=== PATIENT | female | born 1990 | race Caucasian/White ===

== ENCOUNTER 2024-03-11 23:29 | Inpatient (IN) | payer BC, SELFPAY ==
[2024-03-11] VITALS (7 sets, daily range): BP systolic 117–130; BP diastolic 72–81; BMI 40.3
[2024-03-11] MEDS: TYLENOL 1000 MG PO (20:18)
--- NOTE | 2024-03-11 20:19 | ED.GENMED ---
History of Present Illness
<Jennifer Ambrosio WAD LUBRICATOR - Last Filed: 03/12/24 10:23>
General
Chief Complaint: Urinary Symptoms
Source: patient
Exam Limitations: none
Time Seen by Provider: 03/11/24 20:08
Nursing documentation reviewed up to this point in time: agreed with
History of Present Illness
History of Present Illness:
33-year-old female hx ADHD, UTI, presents for 3 days of bilateral lower back pain, malodorous urine, aching pain 'in my bladder,' frequency to urinate. Denies dysuria. 3 days ago went to [facility] who sent U/A out for testing, no results yet.
Started on Nitrofurantoin 100 mg BID of which she's had 5 doses.
Yesterday Fever 102.3 with chills, fever waxing and waning since with Tylenol.
Went back to [facility] today for fever, nausea and sent here.
On arrival pt vomited.
She denies nausea on initial encounter, denies pain when laying still on stretcher.
Past History
<Jennifer Ambrosio WAD LUBRICATOR - Last Filed: 03/12/24 10:23>
Past History
ED Past Medical History: Other (Sleep apnea with CPAP use) and Other (ADHD on Adderall)
Social History
Tobacco: Non-smoker
Alcohol: None
Personal:
Living: with family
Employment: Employed
Review of Systems
<Jennifer Ambrosio, WAD LUBRICATOR - Last Filed: 03/12/24 10:23>
Review of Systems
Allergies reviewed?: Yes
All Other Systems: ROS reviewed and negative except as documented in HPI and ROS
Constitutional: Reports fever and chills
Respiratory: Denies trouble breathing
Cardiac: Denies chest pain
ABD/GI: Reports abdominal pain and vomiting; Denies diarrhea
: Reports frequency and flank pain (Bilateral); Denies dysuria, difficulty voiding or bleeding
Musculoskeletal: Reports no symptoms
Skin: Reports no symptoms
Neurological: Reports no symptoms
Phy Exam
<Jennifer Ambrosio WAD LUBRICATOR - Last Filed: 03/12/24 10:23>
Physical Exam
Physical Exam:
GENERAL: No acute distress. A&Ox3.
CONSTITUTIONAL: Temp 100.2
EYES: Clear, conjunctivae normal
ENMT: moist mucus membranes, Pharynx nl
RESPIRATORY: Regular respirations, nonlabored, lungs clear.
CARDIOVASCULAR: Regular rate and rhythm, no murmurs, no rubs.
GI: Soft, nontender, normal BS. Flanks non tender to percussion
MUSCULOSKELETAL: Moves with ease. Well perfused.
SKIN: Warm, moist, pink
PSYCH: Normal mood and affect. Well kept, interactive and appropriate
NEUROLOGIC: Awake, alert and oriented. No focal neurological deficits
Course
<Jennifer Ambrosio, WAD LUBRICATOR - Last Filed: 03/12/24 10:23>
Orders/Labs/Results
Orders:
Orders
03/11/24 20:10
Test Result ONCE
03/11/24 20:11
CMP [Comprehensive Metabolic Panel] Urgent
Complete Blood Count/With Diff Urgent
HCG, Serum Qualitative Screen Urgent
Comment: ADD ON
Urinalysis Reflex To Culture Urgent
Date Specimen was Collected: 03/11/24
Time Specimen was Collected: 20:09
Urine Microscopic Reflex Cult Urgent
Urine Culture Urgent
SOC[facility]RO Source: U
Specimen Description:
Date Specimen was Collected: 03/11/24
Time Specimen was Collected: 20:09
03/11/24 20:15
Acetaminophen [Tylenol] 1,000 mg PO NOW STA
03/11/24 21:08
CT Abd/pel Without Iv Or Oral Urgent
Comment:
Reason For Exam: hematuria, fever, n/v/ back pain
03/11/24 22:53
CefTRIAXone [Rocephin] 1,000 mg IV NOW STA
03/11/24 23:00
Flush (0.9% Sodium Chloride) [Flush (Nss)] See Dose Instructions IV PER PROTOCOL
03/11/24 23:35
Blood Culture Routine
SOC[facility]RO Source: Blood/Venous
Specimen Description:
Abnormal Lab Results
03/11/24
20:11
WBC 17.2 H 10^3/uL
(4.8-10.8)
Abs Immat Gran (auto) 0.1 H 10^3/uL
(0-0.05)
Absolute Neuts (auto) 14.6 H 10^3/uL
(1.4-6.5)
Absolute Monos (auto) 1.1 H 10^3/uL
(0.1-0.6)
Neutrophils % 85.2 H %
(42.2-75.2)
Lymphocytes % 7.5 L %
(20.5-51.1)
Glucose 164 H mg/dl
(70-99)
AST 49 H U/L
(14-36)
ALT 41 H U/L
(0-35)
Ur Occult Blood Reflex 3+ A
(Negative)
Leukocyte Esterase Rfl 1+ A
(Negative)
Urine RBC 26-30 A /HPF
(0-2)
Urine Bacteria (Reflex) Few A
(Negative)
03/11/24 20:11
03/11/24 20:11
Vital Signs
Initial and Last Documented VS:
Initial Vital Signs
Temp Pulse Resp BP Pulse Ox
100.2 F 119 20 129/81 100
03/11/24 18:56 03/11/24 18:56 03/11/24 18:56 03/11/24 18:56 03/11/24 18:56
Last Documented Vital Signs
Temp Pulse Resp BP Pulse Ox
99.6 F 84 12 104/66 96
03/12/24 07:00 03/12/24 07:00 03/12/24 07:00 03/12/24 07:00 03/12/24 07:00
<Yoselyn AndriaBlaire Purdy WAD LUBRICATOR - Last Filed: 03/11/24 23:01>
Orders/Labs/Results
Orders:
Orders
03/11/24 20:10
Test Result ONCE
03/11/24 20:11
CMP [Comprehensive Metabolic Panel] Urgent
Complete Blood Count/With Diff Urgent
HCG, Serum Qualitative Screen Urgent
Comment: ADD ON
Urinalysis Reflex To Culture Urgent
Date Specimen was Collected: 03/11/24
Time Specimen was Collected: 20:09
Urine Microscopic Reflex Cult Urgent
Urine Culture Urgent
SOCORRO Source: U
Specimen Description:
Date Specimen was Collected: 03/11/24
Time Specimen was Collected: 20:09
03/11/24 20:15
Acetaminophen [Tylenol] 1,000 mg PO NOW STA
03/11/24 21:08
CT Abd/pel Without Iv Or Oral Urgent
Comment:
Reason For Exam: hematuria, fever, n/v/ back pain
03/11/24 22:53
CefTRIAXone [Rocephin] 1,000 mg IV NOW STA
03/11/24 23:00
Flush (0.9% Sodium Chloride) [Flush (Nss)] See Dose Instructions IV PER PROTOCOL
03/11/24 23:35
Blood Culture Routine
SOC[facility] Source: Blood/Venous
Specimen Description:
Abnormal Lab Results
03/11/24
20:11
WBC 17.2 H 10^3/uL
(4.8-10.8)
Abs Immat Gran (auto) 0.1 H 10^3/uL
(0-0.05)
Absolute Neuts (auto) 14.6 H 10^3/uL
(1.4-6.5)
Absolute Monos (auto) 1.1 H 10^3/uL
(0.1-0.6)
Neutrophils % 85.2 H %
(42.2-75.2)
Lymphocytes % 7.5 L %
(20.5-51.1)
Glucose 164 H mg/dl
(70-99)
AST 49 H U/L
(14-36)
ALT 41 H U/L
(0-35)
Ur Occult Blood Reflex 3+ A
(Negative)
Leukocyte Esterase Rfl 1+ A
(Negative)
Urine RBC 26-30 A /HPF
(0-2)
Urine Bacteria (Reflex) Few A
(Negative)
03/11/24 20:11
03/11/24 20:11
Vital Signs
Initial and Last Documented VS:
Initial Vital Signs
Temp Pulse Resp BP Pulse Ox
100.2 F 119 20 129/81 100
03/11/24 18:56 03/11/24 18:56 03/11/24 18:56 03/11/24 18:56 03/11/24 18:56
Last Documented Vital Signs
Temp Pulse Resp BP Pulse Ox
99.6 F 84 12 104/66 96
03/12/24 07:00 03/12/24 07:00 03/12/24 07:00 03/12/24 07:00 03/12/24 07:00
<Jennifer Ambrosio NP - Last Filed: 03/12/24 10:23>
MDM/Problems Addressed
Differential Diagnosis Includes:
Pyelonephritis, kidney stone
MDM/Problems Addressed:
33-year-old female hx ADHD, UTI, presents for 3 days of bilateral lower back pain, malodorous urine, aching pain 'in my bladder,' frequency to urinate. Denies dysuria. 3 days ago went to [facility] who sent U/A out for testing, no results yet.
Started on Nitrofurantoin 100 mg BID of which she's had 5 doses.
Yesterday Fever 102.3 with chills, fever waxing and waning since with Tylenol.
Went back to [facility] today for fever, nausea and sent here.
On arrival pt vomited.
She denies nausea now, denies pain when laying still on stretcher.
Temp 100.2, NAD
CBC: WBC 17.2
CMP: Minimal elevation of liver enzymes
hCG: Neg
UA: 3+ occult blood, +1 leukocyte esterase, RBCs 26-30. WBC 6-10 few bacteria
10:15 p.m. Case discussed with Yoselyn Purdy WAD LUBRICATOR who will assume care from this point
Pt just now going to CT scan
<Yoselyn Purdy WAD LUBRICATOR - Last Filed: 03/11/24 23:01>
*Critical Care Note
Total Time (30-74mins, 75-104mins- exclusive of procedures): Not Applicable
<Yoselyn Purdy WAD LUBRICATOR - Last Filed: 03/11/24 23:01>
Update Note
Update Note:
Ct: no obstructing renal stones. Stranding at right kidney which could represent pyelonephritits. Patient to ED wtih complaint of fever/chills. On Nitrofurantin for UTI, has had 5 doses without improvement. Will admit to hospitalist service.
Ceftriaxone started in ED
ED Attending Note
<Jennifer Ambrosio WAD LUBRICATOR - Last Filed: 03/12/24 10:23>
-
Portions of this chart may have been created with voice recognition software.� Occasional wrong word or��sound alike� substitutions may have occurred due to the inherent limitations of voice recognition software.
Discharge Plan
Departure
Patient Disposition: Admit
Date of Disposition: 03/11/24
Time of Disposition: 22:57
Presentation/result/management discussed w/ accepting MD/DO: Hospitalist
Condition: Fair
Covid-19: Not Applicable
Discharge Problem:
Pyelonephritis
Interventions
Interventions:
*Risk Screen - Suicide Last Done: 03/11/24 21:21
*General Assessment Last Done: 03/11/24 21:21
*Neglect/Abuse Screening Last Done: 03/11/24 21:21
ED- Fall Risk Assessment Last Done: 03/11/24 21:26
*ED COVID-19 Vaccine History Last Done: 03/11/24 21:21
*Nursing Disposition Last Done: 03/12/24 00:38
ED-Female Genitourinary Assessment Last Done: 03/11/24 21:26
Discharge Date and Time
Discharge Date/Time: 03/12/24 00:38
[2024-03-11 20:20] LABS: % Basophils 0.5 % (0-2); % Eosinophils 0.2 % (0-6); % Immature Granulocytes 0.5 % (0-0.5); % Lymphocytes 7.5 % (20.5-51.1); % Monocytes 6.1 % (1.7-9.3); % Neutrophils 85.2 % (42.2-75.2); Absolute Basophils 0.1 10^3/uL (0-0.2); Absolute Immature Granulocytes 0.1 10^3/uL (0-0.05); Absolute Lymphocytes 1.3 10^3/uL (1.2-3.4); Absolute Monocytes 1.1 10^3/uL (0.1-0.6); Absolute Neutrophils 14.6 10^3/uL (1.4-6.5); Hematocrit 41.7 % (37.0-47.0); Hemoglobin 14.3 g/dL (12.0-16.0); Mean Corp Hgb Conc. 34.3 g/dL (33.0-37.0); Mean Corpuscular Hgb 29.4 pg (27.0-31.0); Mean Corpuscular Volume 85.8 fL (81.0-99.0); Mean Platelet Volume 9.4 fL (7.4-10.4); Nucleated Red Blood Cells % 0 %; Platelet Count 380 10^3/uL (130-400); Red Blood Cell Count 4.86 10^6/uL (4.20-5.40); Red Cell Dist. Width 12.9 % (11.5-14.5); Urine Albumin Trace (Neg - Trace); Urine Bilirubin Negative (Negative); Urine Character Clear (Clear); Urine Color Yellow; Urine Glucose Negative (Negative); Urine Ketone Negative (Negative); Urine Leukocyte 1+ (Negative); Urine Nitrite Negative (Negative); Urine Occult Blood 3+ (Negative); Urine Specific Gravity 1.015 (<1.030); Urine Urobilinogen Negative (Neg - 1+); White Blood Cell Count 17.2 10^3/uL (4.8-10.8)
[2024-03-11 20:32] LABS: Urine Bacteria Few (Negative); Urine Red Blood Cell 26-30 /HPF (0-2)
[2024-03-11 20:48] LABS: ALT (SGPT) 41 U/L (0-35); AST (SGOT) 49 U/L (14-36); Albumin 4.9 g/dl (3.5-5.0); Alkaline Phosphatase 102 U/L (38-126); Blood Urea Nitrogen 9 mg/dl (7-17); Calcium 9.7 mg/dl (8.4-10.2); Carbon Dioxide 23 mmol/L (22-30); Chloride 100 mmol/L (98-107); Estimated Creatinine Clearance > 125 ml/min; Glucose 164 mg/dl (70-99); Potassium 4.5 mmol/L (3.5-5.1); Sodium 135 mmol/L (135-145); Total Bilirubin 0.7 mg/dl (0.2-1.3); Total Protein 7.8 g/dl (6.3-8.2); eGFR > 60.00
[2024-03-11 22:13] LABS: HCG, Serum Qualitative Screen Negative
[2024-03-11] MEDS: ROCEPHIN 1000 MG IV (23:11)
[2024-03-11] MEDS: FLUSH (NSS) 1 FLUSH IV (23:11)
--- NOTE | 2024-03-11 23:21 | HPS.HSE ---
Family Physician
-
Family Physician: Dasha Gan
Chief Complaint
-
b/l lower back pain , fever despite PO ABx for OP d of UTI
History of Present Illness
33F HX ADHD, UTI een at ER fror evaluation of bilateral lower back pain sent in from [facility] upon second visit for UTI
Acute onset of b/l LBP
- associated lower abdomen pubic pain felt like coming from the bladder
- malodorous urine
- Denies dysuria
- Had UA but pending results 3 days ago at [facility] started on Nitrofurantoin 100 mg BID s/p 5 doses.
- Yesterday Fever spiked to 102.3 with chill
- Intermittent waxing and waning since with Tylenol.
- Went back to [facility] today for fever, nausea - sent to ER
- On arrival to ER she vomited.
Medical History
Past Medical History
Past Medical History: Reports Psychiatric (ADHD on Adderall) and Other (KHOA )
Additional Past Medical History:
HX UTI
Past Surgical History: Reports None
Social History
Tobacco: Non-smoker
Alcohol: None
Personal:
Living: With Family
Family History
Family History: Not pertinent
Allergies / Home Medications
Allergies reflects when Allergies were last updated in [employer].
Home Medications with original date entered in [employer]
Allergy/Medication List:
Allergies
Allergy/AdvReac Type Severity Reaction Status Date / Time
sulfamethoxazole Allergy Unknown Verified 03/11/24 18:58
[From Bactrim]
trimethoprim [From Bactrim] Allergy Unknown Verified 03/11/24 18:58
Home Medications
dextroamphetamine-amphetamine 20 mg tablet (Adderall) 20 mg PO BID 03/11/24
nitrofurantoin monohydrate/macrocrystals 100 mg capsule 100 mg PO Q12H 03/11/24
Review of Systems
-
Constitutional: Reports Fever and Chills
EENT: Reports No Symptoms
Respiratory: Reports No Symptoms
Cardiac: Reports No Symptoms
Abdomen/GI: Reports No Symptoms
: Reports Other (suprapubic pain )
Musculoskeletal: Reports See HPI (b/l lower back pain )
Skin: Reports No Symptoms
Neurological: Reports No Symptoms
Endocrine: Reports No Symptoms
Hematologic/Lymphatic: Reports No Symptoms
Psych: Reports No Symptoms
Physical Exam
Vital Signs
Vital Signs
Temp Pulse Resp BP Pulse Ox
99.7 F 97 18 128/77 97
03/11/24 22:00 03/11/24 20:15 03/11/24 23:00 03/11/24 23:00 03/11/24 23:00
Physical Exam
General: Well Nourished, No Apparent Distress, Comfortable, Conversant, Morbidly Obese and Other (not toxic looking )
HEENT: Anicteric and Moist mucous membranes
Respiratory: Clear
Cardiac: S1/S2, Regular Rhythm and Tachycardia; No Murmur
Breast: Deferred by me
GI: Soft, Non Tender, Non Distended and Normal Bowel Sounds
Genito-urinary: No costovertebral tender
Musculoskeletal: No Edema
Skin: Warm and Dry
Neuro: AO x 3 and Nonfocal/grossly intact
Psych: Calm and Intact Judgment/Insight
Laboratory Results
-
03/11/24 20:11
03/11/24 20:11
Laboratory Results
Total Bilirubin 0.7 mg/dl (0.2-1.3) 03/11/24 20:11
AST 49 U/L (14-36) H 03/11/24 20:11
ALT 41 U/L (0-35) H 03/11/24 20:11
Alkaline Phosphatase 102 U/L (38-126) 03/11/24 20:11
Data Reviewed
-
CT Scan: Report Reviewed by me
Lab Data: Labs Reviewed by me
Impression/Plan
-
Reviewed VS: Tc 100.2 HR 97 - 119 BP 125/70
Data
WCC 17s
unremarkable BMP
BG 165
AST 49
ALT 41
NEG HCG
UA: RBC 26-30 WCC 6-10
CT Abd/pel Without Iv Or Oral
- No CT evidence for obstructive uropathy.
- Punctate right lower pole renal calculus.
- Minor perinephric fat stranding about the right kidney, nonspecific but could be secondary to pyelonephritis in the appropriate clinical setting.
NO PRIOR admission:
ASSESSMENT & PLAN
Acute Rt pyelonephritis with POS sepsis ( T max at home 102 , HR > 90 WCC > 10 ) S/p 5 doses of OP Nitrofurantoin on arrival
No CT evidence for obstructive uropathy.
Borderline hypotension and tachycardia
Chills POS - eval for Bacteremia
HX UTI once last yr, once during college
- f/u UCx from [facility]
- BCx was sent after IV ABx to eval for Resistant bateremia
- IV CFTX
- IV NS
- Tylenol PRN
Sleep apnea
- cont. [employer] INS[employer]OR CPAP HS
ADHD on Adderall
DVT Px: LMWH
Code: Full
IP TLM
--- NOTE | 2024-03-11 23:27 | EDRN ---
please note the blood cultures were ordered and obtained after rocephin was given.
[2024-03-12] VITALS: BP 131/62
[2024-03-12] MEDS: NSS 1000 IV ×2 (00:42→12:14)
[2024-03-12 00:57] VITALS: BP 122/75; BMI 39.4
--- NOTE | 2024-03-12 02:02 | PTCARENOTE ---
Pt transferred from ED. Pt ambulated into room with assistance. Pt AAOX3, able to make needs known, VSS. Pt oriented to unit, call patino within reach. Will continue with current plan.
[2024-03-12 03:32] VITALS: BP 119/66
[2024-03-12 07:00] VITALS: BP 104/66
--- NOTE | 2024-03-12 07:54 | W.PN.HOSP.TC ---
Today's Communication/Plan
-
switch IV abx to oral
probiotic
discharge
Assessment / Plan
Assessment / Plan
Physical Exam
General: Well Nourished, No Apparent Distress, Comfortable, Conversant, Morbidly Obese
HEENT: Anicteric and Moist mucous membranes
Respiratory: Clear
Cardiac: S1/S2, Regular Rhythm and Tachycardia; No Murmur
GI: Soft, Non Tender, Non Distended and Normal Bowel Sounds
Genito-urinary: No costovertebral tender
Musculoskeletal: No Edema
Skin: Warm and Dry
Neuro: AO x 3 and Nonfocal/grossly intact
Psych: Calm and Intact Judgment/Insight
CT Abd/pel Without Iv Or Oral
- No CT evidence for obstructive uropathy.
- Punctate right lower pole renal calculus.
- Minor perinephric fat stranding about the right kidney, nonspecific but could be secondary to pyelonephritis in the appropriate clinical setting.
ASSESSMENT & PLAN
Acute Rt pyelonephritis with POS sepsis ( T max at home 102 , HR > 90 WCC > 10 ) S/p 5 doses of OP Nitrofurantoin on arrival
No CT evidence for obstructive uropathy.
Borderline hypotension and tachycardia (since improved)
Fever and Chills since resolved
Significant improvement Leukocytosis noted (almost resolved)
HX UTI once last yr during college
- Ucx here notes no significant growth (possible false neg d/t recent abx use)
- BCx NGTD
- IV CFTX to convert to Augmentin planned for 10 days treatment. Probiotic use for gut health recommended (available over the counter)
- Tylenol PRN (has not required since initial stat dose and start of IV abx)
Sleep apnea
- cont. [employer]ER CPAP HS
ADHD on Adderall
DVT Px: LMWH
Code: Full
IP TLM
Discussed with patient. Eager to go home, patient able to verbalize her understanding that she me be called to return to hospital should blood culture return positive. Nonetheless, patient wants to go home.
Otherwise, medically stable, patient discharged home with outpatient follow up recommendations.
Total Time Preparing Discharge ___50____ minutes including examination of the patient, summary of the hospital stay, instructions for continuing care to all relevant caregivers; and preparation of discharge records, prescriptions, and referral
forms if necessary.
Anticipated Discharge: Today
Subjective/Interval History
-
Date of Service: March 12, 2024
seen and examined at bedside in no acute distress resting comfortably in bed. Reports resolution of pain, feels well, eager to go home (has 4 yr old daughter at home to take care of). Denies new acute issues.
Objective Data
-
Labs:
Laboratory Results
03/11/24 03/12/24
20:11 06:00
WBC 17.2 H Pending
Hgb 14.3 Pending
Hct 41.7 Pending
Plt Count 380 Pending
Sodium 135
Potassium 4.5
Chloride 100
Carbon Dioxide 23
BUN 9
Creatinine 0.7
Glucose 164 H
Calcium 9.7
Total Bilirubin 0.7
AST 49 H
ALT 41 H
Alkaline Phosphatase 102
Vital Signs:
Vital Signs
Temp Pulse Resp BP Pulse Ox
97.9 F 81 18 119/66 100
03/12/24 03:32 03/12/24 03:32 03/12/24 03:32 03/12/24 03:32 03/12/24 03:32
I&O
03/11/24 03/12/24 03/13/24
06:59 06:59 06:59
Intake Total 600 / 600
Balance 600 / 600
[2024-03-12] MEDS: ADDERALL 20 MG PO ×2 (08:53→16:16)
[2024-03-12 10:10] LABS: Hematocrit 37.3 % (37.0-47.0); Hemoglobin 12.7 g/dL (12.0-16.0); Mean Corpuscular Hgb 29.7 pg (27.0-31.0); Mean Corpuscular Volume 87.4 fL (81.0-99.0); Mean Platelet Volume 9.5 fL (7.4-10.4); Platelet Count 317 10^3/uL (130-400); Red Blood Cell Count 4.27 10^6/uL (4.20-5.40); Red Cell Dist. Width 13.1 % (11.5-14.5); White Blood Cell Count 11.1 10^3/uL (4.8-10.8)
[2024-03-12 11:00] VITALS: BP 127/83
--- NOTE | 2024-03-12 11:19 | CM ---
IA completed by cm.
Dx: Pylenophritis
Patient lives at home with and daughter.
PLOF: Independent & drives
PCP: Dasha Verdugo
Pharmacy: [facility]
Plan: Discharge to home when stable. No needs anticipated.
[2024-03-12 15:00] VITALS: BP 100/61
--- NOTE | 2024-03-12 15:09 | W.DCSUMMARY ---
Discharge Summary
Discharge Data
Date of Admission: 03/11/24
Date of Discharge: 03/12/24
-
Pending Results: Yes
Additional Pending Results:
blood culture results
Discharge Plan
-
Patient Disposition: Home (Routine Discharge)
Discharge Diagnosis/Procedures: Sepsis complicated urinary tract infection
Right Pyelonephritis
Mild transaminitis
Condition: Good
Diet: Regular
Activity: As tolerated
Driving Restrictions: As prior to admission
Bathing Restrictions: None
Blood Work: Please repeat CBC and CMP with primary care provider in 1 week of discharge
Activity Restrictions/Additional Instructions:
Please follow up with primary care provider in 1 week of discharge and infectious disease in 1-2 weeks of discharge.
Augmentin has been prescribed in place of nitrofurantoin to continue treatment complicated urinary tract infection, right Pyelonephritis. Antibiotic has been prescribed for 10 days. Probiotic has all been prescribed while on broad spectrum
antibiotic to promote gut health. Probiotics are also available over the counter.
Please take medications as prescribed/recommended and follow up with primary care provider and/or other healthcare provider involved in your care for further adjustments as necessary.
Referrals:
Dasha Gan CRNP [Family Provider] - in one week
Claire Sargent MD [Active] - in one to two weeks
Prescriptions:
New
amoxicillin-pot clavulanate 875-125 mg Tablet
1 tab PO Q12 10 Days Qty: 20 0RF
Saccharomyces boulardii 250 mg Capsule
250 mg PO DAILY 10 Days Qty: 10 0RF
Continued
dextroamphetamine-amphetamine [Adderall] 20 mg Tablet
20 mg PO BID
Patient Comments:
03/11/2024: last filled 03/08/24, 60 tabs for 30 days from [id number]
Discontinued
nitrofurantoin monohyd/m-cryst 100 mg capsule
100 mg PO Q12H
Discharge Orders:
Discharge Patient (As Directed); Ordered 03/12/24
Ordered By: Capo Martinez
Discharge Date and Time
Print Language: THAI
[2024-03-12] MEDS: FLORASTOR 250 MG PO (16:16)
[2024-03-12] MEDS: AUGMENTIN 875 MG/125 MG 1 TABLET PO (16:17)
== END 2024-03-12 16:38 | disposition home or self-care (01) | DRG 872 ==
LOC: 4 WEST ACU 23:29
PROVIDERS: Emergency Medicine; Registered Nurse; ADMITTING PHYSICIAN Internal Medicine; ATTENDING PHYSICIAN Internal Medicine; EMERGENCY PHYSICIAN Emergency Medicine; FAMILY PHYSICIAN Nurse Practitioner Family
DX: A41.9 Sepsis, unspecified organism (principal); N10 Acute pyelonephritis; R74.01 Elevation of levels of liver transaminase levels; G47.33 Obstructive sleep apnea (adult) (pediatric); F90.9 Attention-deficit hyperactivity disorder, unspecified type; Z87.440 Personal history of urinary (tract) infections
CPT/HCPCS: 74176; 80053; 81003; 81015; 83605; 84703; 85025; 85027; 87040; 87086; 96374; 99285